=== PATIENT | male | born 1955 | race Caucasian/White ===

== ENCOUNTER 2018-12-13 10:33 | Emergency (ER) | payer BC ==
--- NOTE | 2018-12-13 11:38 | EDM.PDOC ---
ED HPI GENERAL MEDICAL PROBLEM - General Chief Complaint: Laceration Stated Complaint: CUT LEG ON NAKUL WIRE Time Seen by Provider: 12/13/18 11:32 Source of Information: Reports: Patient History Limitations: Reports: No Limitations - History of Present Illness INITIAL COMMENTS - FREE TEXT/NARRATIVE: pt states was hiking yesterday cut the back of his left leg on piece of nakul wire about 6pm washed the area with some bottled water and applied neosporine this morning he got a ride into town and came to the local ER. He denies any excessive bleeding numbness or tingling loss of sensation loss of range of motion. States his tetanus is up-to-date November 2018 he states other than the cuts he is doing fine with no other medical complaints he has no medical issues he is not diabetic Onset Date: 12/12/18 Onset Time: 18:00 Location: Reports: Lower Extremity, Left Severity: Mild - Related Data Allergies Allergy/AdvReac Type Severity Reaction Status Date / Time Penicillins Allergy Cannot Verified 12/13/18 10:52 Remember Home Meds: Home Meds . [No Known Home Meds] 12/13/18 [History] Past Medical History - Past Health History Medical/Surgical History: Denies Medical/Surgical History Social & Family History - Tobacco Use Smoking Status *Q: Light Tobacco Smoker Years of Tobacco use: 0 Packs/Tins Daily: 0 ED ROS GENERAL - Review of Systems Review Of Systems: See Below Constitutional: Reports: No Symptoms Respiratory: Reports: No Symptoms Cardiovascular: Reports: No Symptoms Endocrine: Reports: No Symptoms GI/Abdominal: Reports: No Symptoms : Reports: No Symptoms Musculoskeletal: Reports: No Symptoms, Other (States pain is just a mild burning over the lacerations) Skin: Reports: No Symptoms Neurological: Reports: No Symptoms Hematologic/Lymphatic: Reports: No Symptoms, Other (States he has had no issues in the past with wounds healing). Denies: Anemia, Easy Bleeding, Easy Bruising Immunologic: Reports: No Symptoms ED EXAM, SKIN/RASH Exam: See Below Exam Limited By: No Limitations General Appearance: Alert, WD/WN, No Apparent Distress Neck: Normal Inspection, Full Range of Motion Respiratory/Chest: No Respiratory Distress Cardiovascular: Normal Peripheral Pulses GI/Abdominal: Soft, Non-Tender Extremities: Normal Inspection, Normal Range of Motion, Non-Tender, No Pedal Edema, Normal Capillary Refill Neurological: Alert, Oriented, CN II-XII Intact, Normal Cognition, Normal Gait, Normal Reflexes, No Motor/Sensory Deficits Skin: Warm, Dry, Normal Color, No Rash. No: Intact (Exam to the left leg reveals 3 lacerations #1 3 and half centimeters by 1 cm by quarter centimeter to the left lower extremity posterior aspect of the thigh #2 anterior portion of the thigh approximately 1 cm by half centimeter by 3 mm #3 lower posterior calf superficial laceration/abrasion approximately 4 cm x 1 cm x 1 mm patient had full range of motion with lower extremity he is neurovascularly intact normal soft touch sensation normal posterior tibialis and dorsalis pedis Full range of motion flexion and extension normal Hayes test) Associated features: No: Warmth, Tenderness, Swelling, Induration (Patient had no signs or symptoms of secondary infection) Lymphatic: No Adenopathy Course - Vital Signs Text/Narrative:: The lacerations were irrigated with Hibiclens and normal saline with pressure irrigation approximately 500 mL's and they were scrubbed with full before and Hibiclens and rinsed again with normal saline #1 and #2 laceration was loosely approximated and closed with Steri-Strips and the Steri-Strips were held intact with Dermabond no Dermabond covered the wound a superficial amount of Neosporin was applied over the wound directly for #1 2 and 3 the wounds were covered with 4 x 4's Kerlix and Coban Patient was instructed on while the wounds were closed loosely secondary to increased risk of infection due to the timeline of the lacerations he is okay with treatment and discharge he was given strict wound instructions and signs and symptoms to return for medical care he was also given verbal instructions on how to care for the wound and giving supplies for dressing the wound he will also be given Keflex 500 mg 1 by mouth every 6 hours prophylactically 10 days secondary he plans to continue hiking the [place] will not be back in town for the next couple days PT states that he is taking Keflex in the past with no issues at multiple times Last Recorded V/S: Last Vital Signs Temp 37.1 C 12/13/18 10:40 Pulse 64 12/13/18 10:40 Resp 18 12/13/18 10:40 BP 133/72 12/13/18 10:40 Pulse Ox 97 12/13/18 10:40 Departure - Departure Time of Disposition: 11:35 Disposition: Home, Self-Care 01 Condition: Good Clinical Impression: Laceration of left leg - Discharge Information Instructions: Wound Infection, Laceration Care, Adult Referrals: PCP,Not In Area [Primary Care Provider] - Forms: ED Department Discharge Additional Instructions: Patient was instructed on while the wounds were closed loosely secondary to increased risk of infection due to the timeline of the lacerations he is okay with treatment and discharge he was given strict wound instructions and signs and symptoms to return for medical care he was also given verbal instructions on how to care for the wound and giving supplies for dressing the wound he will also be given Keflex 500 mg 1 by mouth every 6 hours prophylactically 10 days secondary he plans to continue hiking the [place] will not be back in town for the next couple days - Problem List & Annotations (1) Laceration of left leg SNOMED Code(s): 400546371 Code(s): S81.812A - LACERATION WITHOUT FOREIGN BODY, LEFT LOWER LEG, INIT ENCNTR Status: Acute
== END 2018-12-13 11:56 | disposition home or self-care (01) ==
LOC: VM.ED 10:33
DX: S81.812A Laceration without foreign body, left lower leg, initial encounter (principal); S71.112A Laceration without foreign body, left thigh, initial encounter; W26.8XXA Contact with other sharp object(s), not elsewhere classified, initial encounter
CPT/HCPCS: 12001; 12002; 12004; 99283